=== PATIENT | female | born 1960 | race Caucasian/White ===

== ENCOUNTER → 2018-12-01 | Outpatient (REF) | payer BC ==
[~2018-12-01] MED LIST: ADV250INH INH; ALPR0.5T3 PO; ALPR1TAB3 PO; AMBI10TA PO; BUPR300T34 PO; ESTR1TAB PO; LEVAINH INH; OXAZ30CA2 PO; PHEN37.5 PO; VITA500046 PO; VITMTA PO; WELL100T PO
[2018-12-01 19:06] LABS: BACTERIA, URINE AUTO 2+ (NEGATIVE); RBC, URINE AUTO 0 /HPF (0-3); SQUAMOUS EPITHELIAL CELL UR AU 1 /HPF (0-6); WBC, URINE AUTO 2 /HPF (0-3)
== END ==
LOC: M SMT 17:16
PROVIDERS: ATTEND Specialist
DX: N39.43 Post-void dribbling (principal)

== ENCOUNTER 2019-02-27 09:00 | Day surgery (SDC) | payer BC ==
[~2019-02-27] VITALS: Ht 154.9 cm; Wt 62.6 kg
[~2019-02-27 09:00] MED LIST changes: +ATOR40TA75 PO; +BREO1INH INH; +CBD OIL; +CLINDAMYCIN 900 MG in APPROPRIATE DILUENT 1 EA IV ONE; +HYDR-2808 PO; +LAMI1TAB8 PO; +LEVO75TA4 PO; +LIDOCAINE 1% MDV 20ML VIAL SQ PRN; +LR 1,000 ML IV ONE; +MIDAZOLAM INJ 2 MG/2 ML VIAL (J2250) IV SCH; +OMEG1CAP16 PO; +PERC5TAB12 PO; +QUET1TAB8 PO; +VITA100T59 PO; +VITA200021 PO; +fentaNYL 100 MCG/2 ML INJECTION (J3010) IV SCH
[2019-02-27] MEDS ORDERED: dexameTHASONE 10 MG/1 ML VIAL PRES.FREE (J1100) ONE (09:01)
[2019-02-27] MEDS ORDERED: LIDOCAINE 1% MDV 20ML VIAL ONE (09:01)
[2019-02-27 09:35] LABS: HEMOGLOBIN 14.3 g/dl (12.0-15.5); MEAN CORPUSCULAR HEMOGLOBIN 30.8 pg (27.0-33.0); MEAN CORPUSCULAR HGB CONC 33.3 g/dl (32.0-36.5); MEAN CORPUSCULAR VOLUME 92.5 fl (80.0-96.0); PLATELET COUNT, AUTOMATED 339 10^3/uL (150-450); RED BLOOD COUNT 4.65 10^6/uL (4.00-5.40); WHITE BLOOD COUNT 8.1 10^3/uL (4.0-10.0)
[2019-02-27] MEDS ORDERED: CALC-190 PO (10:08)
--- NOTE | 2019-02-27 10:09 | ECGEPIP ---
[facility] Test Date: 2019-02-27 Pat Name: ANGELICA ROBLES Department: Room: - Gender: Female Huc: : 1960 Requested By: LYN Florian Order Number: [id number] Reading MD: Mira [address] Measurements Intervals [place] Rate: 62 P: 69 NM: 162 QRS: 61 QRSD: 89 T: 96 QT: 413 QTc: 422 Interpretive Statements SINUS RHYTHM NONSPECIFIC ST T-WAVE ABNORMALITY NO PRIOR Electronically Signed on 02-27-2019 10:09:[address]
[2019-02-27 10:11] LABS: ALBUMIN 3.5 GM/DL (3.2-5.2); BILIRUBIN,TOTAL 0.5 MG/DL (0.2-1.0); CREATININE FOR GFR 1.14 MG/DL (0.55-1.30); GLOMERULAR FILTRATION RATE 51.9 (>51); POTASSIUM SERUM 3.8 MEQ/L (3.5-5.1); TOTAL PROTEIN 7.2 GM/DL (6.4-8.2)
[2019-02-27] MEDS ORDERED: LIDOCAINE 2% INJ 100 MG/5 ML SDV (FOR ANES.) As Ordered ONE (10:14)
[2019-02-27] MEDS ORDERED: ONDANSETRON 4MG/2ML VIAL (J2405) As Ordered ONE (10:14)
[2019-02-27] MEDS ORDERED: MIDAZOLAM INJ 2 MG/2 ML VIAL (J2250) As Ordered ONE ×3 (10:14→12:18)
[2019-02-27] MEDS ORDERED: PROPOFOL 200 MG/20 ML VIAL As Ordered ONE (10:14)
[2019-02-27] MEDS ORDERED: dexameTHASONE 4 MG/ML 1ML VIAL (J1100) As Ordered ONE (10:14)
[2019-02-27] MEDS ORDERED: fentaNYL 100 MCG/2 ML INJECTION (J3010) As Ordered ONE ×2 (10:14→11:53)
[2019-02-27] MEDS ORDERED: IPRATROPIUM 0.5MG/ALBUTEROL 2.5MG INH SOL UD 3ML (DUONEB)(J7620) As Ordered ONE (10:22)
[2019-02-27] MEDS ORDERED: IPRATROPIUM 0.5MG/ALBUTEROL 2.5MG INH SOL UD 3ML (DUONEB)(J7620) INH ONE (10:30)
[2019-02-27] MEDS ORDERED: KETAMINE HCL 200 MG/20 ML VIAL As Ordered ONE (11:32)
[2019-02-27] MEDS ORDERED: BUPIVACAINE HCL 0.25% 30 ML VIAL As Ordered ONE (11:52)
[2019-02-27] MEDS ORDERED: BUPIVACAINE HCL 0.25% 10 ML VIAL As Ordered ONE (11:52)
[2019-02-27] MEDS ORDERED: HYDROmorphone HCL 2 MG/ML 1ML VIAL (J1170) As Ordered ONE (13:53)
[2019-02-27] MEDS ORDERED: ROCURONIUM BROMIDE 50 MG/5 ML VIAL As Ordered ONE (13:55)
[2019-02-27] MEDS ORDERED: LABETALOL HCL 100 MG/20 ML VIAL As Ordered ONE (13:58)
[2019-02-27] MEDS ORDERED: SUGAMMADEX SODIUM 500 MG/5 ML VIAL (BRIDION) As Ordered ONE (14:08)
[2019-02-27] MEDS ORDERED: KETOROLAC 60 MG/2 ML VIAL (J1885) As Ordered ONE (14:09)
[2019-02-27] MEDS ORDERED: PHENYLephrine HCL 500 MCG/5 ML (100MCG/ML) SYRINGE (J2370) As Ordered ONE (14:12)
[2019-02-27] MEDS ORDERED: ePHEDrine SULFATE 25 MG/5 ML(5MG/ML) SYRINGE As Ordered ONE (14:12)
[2019-02-27] MEDS ORDERED: ONDANSETRON 4MG/2ML VIAL (J2405) IV PRN (16:45)
[2019-02-27] MEDS ORDERED: fentaNYL 100 MCG/2 ML INJECTION (J3010) IV PRN (16:45)
[2019-02-27] MEDS ORDERED: LR 1,000 ML IV SCH (16:45)
[2019-02-27] MEDS ORDERED: ACETAMINOPHEN 500 MG TAB PO PRN (16:45)
[2019-02-27] MEDS: HYDROMORPHONE HCL 0.5 MG/ 0.5 ML SYRINGE (J1170 PER 1) IV PRN ×2 (17:02→17:10)
[2019-02-27] MEDS: oxyCODONE 5MG TAB PO PRN ×2 (17:02→17:47)
[2019-02-27 19:05] VITALS: BP 115/67
--- NOTE | 2019-02-27 22:21 | RO ---
DATE OF PROCEDURE: 02/27/2019 PREPROCEDURE DIAGNOSIS: Left proximal humerus fracture. POSTPROCEDURE DIAGNOSIS: Left proximal humerus fracture. PROCEDURE:Left Reverse shoulder arthroplasty ORIF Left Greater and Lesser Tuberosities Left Rotator cuff repair left bicep tenodesis SURGEON: Preet Treadwell MD GAS STATION CASHIER:none ANESTHESIA: General INDICATIONS: This is a pleasant 58-year-old female who had a fall and suffered a comminuted four-part proximal humerus fracture. We discussed in the preoperative planning with the patient the possibility of either fixing proximal humerus versus reverse shoulder arthroplasty. I discussed with the patient that this would be an intraoperative decision based on the quality of bone and tissue. The patient expressed understanding and agreement with this plan. Risks and benefits including but not limited to malunion, nonunion, infection, dislocation, and damage to surrounding structures. OPERATIVE FINDINGS: After doing the approach, we discovered that there was an anatomical neck fracture that did not leave much subchondral bone beneath the articular surface and due to this, decision was made to do reverse shoulder arthroplasty as opposed to fixing it, as we did not feel like we would get adequate fixation. DESCRIPTION OF PROCEDURE: The patient was brought back into the operating room, placed in the beach chair. The patient was intubated at which point the patient's left shoulder was prepped and draped in the usual fashion. Time-out was had confirming site, surgery, and patient at which point the deltopectoral (deltopec) approach was made. We sharply went through the skin, divided subcu tissue, identified the cephalic vein at the deltopectoral interval, moved the cephalic vein laterally at which point we identified the conjoined tendon and incised lateral to this and placed retractors in place. We freed up subdeltoid adhesions. At this point, we were able to identify the fracture. Fracture plane was found through the bicipital groove. We used x-ray to try to use indirect modes of reduction at which point we were happy at first with our reduction and then tried to use some K-wires to hold it in place. However, we were unable to hold it in place. Then, we further explored the fracture and finding that there was very little subchondral bone intact on the subarticular surface, about 5 mm, and did not believe this would hold reduction, so we changed gears and decided to proceed with reverse shoulder arthroplasty. Given the patient's age and medical comorbidities, including chronic obstructive pulmonary disease (COPD) and active smoker, I did not feel that the tuberosity healing would be at the highest chance. So, we then turned our attention to the glenoid. The bicep was tenodesed just inferior to the groove. We then stripped the biceps tendon proximally along with the labrum, marked the center just inferior third of the glenoid at which point I placed the pin, drilled our center peg. We then reamed away the cartilage and subchondral bone, impacted the base plate at which point we then drilled the four screws, superior and inferior were locking screws, anterior and posterior were cortical. These were then locked in place, and we decided to proceed with a 38 glenosphere. We turned our direction then to the humerus, which was then prepped starting at the 6 mm and proceeded upwards to 10 mm, and then we broached using a 30-degree retroversion in the arm; at which point, we were happy with the cortical chatter and the tight fit. We trialed both a 3 and a 6 poly at which point we decided we were happy with this selection, so then we used a 10 stem, impacted it fully down. When we retrialed the polys, we must have sunk the stem a little bit further because then we chose a 9 poly for adequate fit. No spontaneous dislocation and full range of motion with a 1-2 mm gap on shuck. At which point, we impacted the final poly. We then used a #2 FiberWire to repair the tuberosities using bone tunnels along with traction down to the tendon insertion, and we then repaired some small rotator cuff along the rotator interval with a #2 FiberWire as well, along with a combination of #5 Ethibond. At this point, we were happy with the reduction of the tuberosities and the rotator cuff repair. We then closed the deltopectoral interval with #0 Prolene, subcu tissue with #2-0 Vicryl and stapled the skin shut. We placed a dressing over top, and the patient will be in a sling. COMPLICATIONS: None. SPECIMENS: None. No drains. There were 2 grams of Kefzol antibiotics preoperatively POSTOPERATIVE PLAN: The patient will be in a sling for 2 weeks. We will see her in the office, check on the incision at which point we will start pendulum swings only. We will wait until 6 weeks for active range of motion and for physical therapy to officially start. MTDD
--- NOTE | 2019-02-28 06:43 | REP ---
LEFT SHOULDER, TWO VIEWS: Two views of the left shoulder performed. There is a prosthetic glenoid aligned with a prosthesis in the proximal humerus. There is curvilinear calcification along the lateral aspect of the proximal humerus. There is mild narrowing and spurring of the acromioclavicular joint. Electronically Signed by Jose Higuera MD 02/28/2019 11:51 P
== END 2019-02-27 19:10 | disposition home or self-care (01) ==
LOC: M SDC 09:00
PROVIDERS: ATTEND Orthopaedic Surgery Hand Surgery
DX: S42.202A Unspecified fracture of upper end of left humerus, initial encounter for closed fracture (principal); W19.XXXA Unspecified fall, initial encounter; Y92.89 Other specified places as the place of occurrence of the external cause; Y93.9 Activity, unspecified; Y99.9 Unspecified external cause status; J44.9 Chronic obstructive pulmonary disease, unspecified; E03.9 Hypothyroidism, unspecified; E78.5 Hyperlipidemia, unspecified; F17.210 Nicotine dependence, cigarettes, uncomplicated; Z88.0 Allergy status to penicillin; Z88.2 Allergy status to sulfonamides; Z88.5 Allergy status to narcotic agent; F41.9 Anxiety disorder, unspecified; F32.9 Major depressive disorder, single episode, unspecified; Z79.899 Other long term (current) drug therapy
CPT/HCPCS: 23420; 23430; 23616; 36415; 64418; 73020; 76000; 80053; 85027; 88304; 88311; 93005; C1713; C1776; J1100; J1170; J1885; J2250; J2370; J2405; J3010

== ENCOUNTER → 2019-04-03 | Outpatient (CLI) | payer BC ==
[~2019-04-03] MED LIST changes: +CALC-190 PO; -CLINDAMYCIN 900 MG in APPROPRIATE DILUENT 1 EA IV ONE; -LIDOCAINE 1% MDV 20ML VIAL SQ PRN; -LR 1,000 ML IV ONE; -MIDAZOLAM INJ 2 MG/2 ML VIAL (J2250) IV SCH; -fentaNYL 100 MCG/2 ML INJECTION (J3010) IV SCH
[2019-04-03 14:12] LABS: BASO # 0.1 10^3/uL (0.0-0.2); BASO % 0.5 % (0.0-1.0); EOS # 0.1 10^3/uL (0.0-0.5); EOS % 0.9 % (0.0-3.0); HEMATOCRIT 36.7 % (36.0-47.0); HEMOGLOBIN 11.7 g/dl (12.0-15.5); LYMPH # 1.5 10^3/uL (1.5-5.0); LYMPH % 16.5 % (24.0-44.0); MEAN CORPUSCULAR HEMOGLOBIN 29.1 pg (27.0-33.0); MEAN CORPUSCULAR HGB CONC 31.9 g/dl (32.0-36.5); MEAN CORPUSCULAR VOLUME 91.3 fl (80.0-96.0); MONO # 0.6 10^3/uL (0.0-0.8); MONO % 6.2 % (0.0-5.0); NEUTROPHILS # 6.9 10^3/uL (1.5-8.5); NEUTROPHILS % 75.5 % (36.0-66.0); PLATELET COUNT, AUTOMATED 402 10^3/uL (150-450); RED BLOOD COUNT 4.02 10^6/uL (4.00-5.40); WHITE BLOOD COUNT 9.1 10^3/uL (4.0-10.0)
[2019-04-03 14:37] LABS: BLOOD UREA NITROGEN 17 MG/DL (7-18); C REACTIVE PROTEIN QUANTITATIV 2.86 MG/DL (0.00-0.30); CREATININE FOR GFR 0.96 MG/DL (0.55-1.30); GLOMERULAR FILTRATION RATE > 60.0 (>51)
[2019-04-03 15:01] LABS: ERYTHROCYTE SEDIMENTATION RATE 52 mm/hr (0-30)
== END ==
LOC: M WUC 13:32
PROVIDERS: ATTEND Orthopaedic Surgery Hand Surgery
DX: Z47.1 Aftercare following joint replacement surgery (principal)

== ENCOUNTER 2019-04-25 08:02 | Inpatient (IN) | payer MEDICARE, BC ==
[~2019-04-25] VITALS: Ht 154.9 cm; Wt 64.3 kg
[~2019-04-25 08:02] MED LIST changes: +BACT800T5 PO; +KEFL250C11 PO; +LR 1,000 ML IV ONE; +MIDAZOLAM INJ 2 MG/2 ML VIAL (J2250) As Ordered ONE; +VITA50005 PO; +fentaNYL 100 MCG/2 ML INJECTION (J3010) As Ordered ONE
[2019-04-25] MEDS ORDERED: LIDOCAINE 2% INJ 100 MG/5 ML SDV (FOR ANES.) As Ordered ONE (08:52)
[2019-04-25] MEDS ORDERED: ROCURONIUM BROMIDE 50 MG/5 ML VIAL As Ordered ONE ×2 (08:52→12:20)
[2019-04-25] MEDS ORDERED: PROPOFOL 200 MG/20 ML VIAL As Ordered ONE (08:52)
[2019-04-25] MEDS ORDERED: MIDAZOLAM INJ 2 MG/2 ML VIAL (J2250) As Ordered ONE (08:53)
[2019-04-25] MEDS ORDERED: dexameTHASONE 4 MG/ML 1ML VIAL (J1100) As Ordered ONE (08:53)
[2019-04-25] MEDS ORDERED: fentaNYL 100 MCG/2 ML INJECTION (J3010) As Ordered ONE (08:53)
[2019-04-25] MEDS ORDERED: ONDANSETRON 4MG/2ML VIAL (J2405) As Ordered ONE (08:53)
[2019-04-25] MEDS ORDERED: ALBUTEROL 6.7GM INHALER **FOR ANES. CART/OMNICELL ONLY As Ordered ONE (09:09)
[2019-04-25] MEDS ORDERED: SUGAMMADEX SODIUM 500 MG/5 ML VIAL (BRIDION) As Ordered ONE (10:00)
[2019-04-25] MEDS ORDERED: EPINEPHrine INJ 1 MG/ML 1ML AMP As Ordered ONE (10:53)
[2019-04-25] MEDS ORDERED: CLINDAMYCIN INJ 900MG/6ML VIAL As Ordered ONE (10:54)
[2019-04-25] MEDS ORDERED: ceFAZolin 1GM INJ (J0690 PER 500MG) As Ordered ONE ×2 (11:27→12:46)
[2019-04-25] MEDS ORDERED: HYDROmorphone HCL 2 MG/ML 1ML VIAL (J1170) As Ordered ONE (12:01)
[2019-04-25] MEDS ORDERED: PHENYLephrine HCL 500 MCG/5 ML (100MCG/ML) SYRINGE (J2370) As Ordered ONE ×2 (12:05→12:54)
[2019-04-25] MEDS ORDERED: ACETAMINOPHEN 1000MG 100ML IV BTL (OFIRMEV) (J0131 PER 10MG) As Ordered ONE (12:44)
[2019-04-25] MEDS ORDERED: KETOROLAC 60 MG/2 ML VIAL (J1885) As Ordered ONE (12:44)
[2019-04-25] MEDS ORDERED: ONDANSETRON 4MG/2ML VIAL (J2405) IV PRN ×2 (14:00→15:00)
[2019-04-25] MEDS ORDERED: LR 1,000 ML IV SCH (14:00)
[2019-04-25] MEDS: fentaNYL 100 MCG/2 ML INJECTION (J3010) IV PRN ×4 (14:20→14:35)
[2019-04-25] MEDS: MORPHINE 10 MG/ML 1ML VIAL (J2270) IV PRN ×6 (14:50→15:25)
[2019-04-25] MEDS ORDERED: FLEET ENEMA PR PRN (15:00)
[2019-04-25] MEDS ORDERED: oxyCODONE 5MG TAB PO PRN (15:00)
--- NOTE | 2019-04-25 15:01 | RO ---
DATE OF PROCEDURE: 04/25/2019 PREOPERATIVE DIAGNOSIS: Left infected reverse shoulder arthroplasty. POSTOPERATIVE DIAGNOSIS: Left infected reverse shoulder arthroplasty. PROCEDURE: SURGEON: Preet Treadwell MD HORSERADISH MAKER: JONATHAN Monteiro who was essential during oconnell portions of the procedure with retraction. INDICATION: This is a 58-year-old female that suffered a very complex proximal humerus fracture approximately seven weeks ago. A decision was made due to the displacement and lack of bony stock to do a reverse shoulder arthroplasty. She did well for initially about 4-5 weeks then she started having one episode of fever and increasing pain. Eventually she developed a boil that developed into a draining sinus. Unfortunately, this means we had to return to the OR for irrigation, debridement and explant. The patient understood the risks and benefits that were discussed including but not limited to infection, need for further surgery and damage to surrounding structures. COMPLICATIONS: None. BLOOD LOSS: 250 mL. ANESTHESIA: General. SPECIMENS: We sent tissue for permanent pathology along with three or four cultures deep which will hopefully grow some bacteria that will allow us to curtail our antibiotics. OPERATIVE DESCRIPTION: The patient was brought back to the operating room on her stretcher, was placed onto the operative table, underwent general anesthesia at which point she was placed into the beach chair position. We prepped and draped her left arm in the usual fashion at which point we had time out confirming site, side and surgery. Once all in agreement, we made a longitudinal incision through the previous scar and we also excised lateral to that a 1.5 x 3 cm oval of tissue that was the draining sinus. We also excised a draining sinus at the inferior portion of the incision that was 5 x 2 cm. At this point, we found the deltopectoral interval by identifying our previously nonabsorbable suture. We then identified the conjoin tendon and inserted our folder retractor after we free up the deltoid from any adhesions. We then localized out 5.0 wire sutures and removed them that were previously used to fix the tuberosities. We debrided the tuberosities as well as they looked like necrotic bone. We then dislocated the shoulder and used the Cirqleuy extractor to remove the poly. We used flexible osteotomes to loosen the prosthesis proximally around the metaphysis and used the extraction device to remove the humeral stem, at which point our attention was turned to the Glenosphere where we unlocked the engaged taper screw, then the Glenosphere itself was loosened and able to be lifted off using the fork elevator. We then removed the two compressive and two locking screws and used the screwdriver to remove the baseplate. We were able to find gross purulence once we incised this sinus tract along with deep into the joint between the prosthetic and bone interfaces. We then irrigated the wound thoroughly. We used a knife, Bovie and curettes to debride the skin, subcutaneous tissue, muscle and bone sharply. Once we believed we had adequate debridement and after irrigating with 7 liters of saline, we then started mixing the antibiotics cement and using the [employer] interspace shoulder articulating spacer, then we used antibiotic cement to cement it around the metaphysis and into place. This will help maintain the joint space for a staged procedure wherein 2-3 months we will come back and return after the infection is cleared to place a new reverse shoulder arthroplasty. Once we were happy with the spacer being cemented in well and secure, we then irrigated the wound one more time and closed the deltopectoral fascia with #0 Prolene and we closed the subcutaneous tissue by bulky incision and the lateral sinus tact with #2-0 PDS and the skin with #2-0 nylon. We then placed an Incisional VAC over the sinus tract along with the incision set to 75 mmHg at which point the patient was extubated and taken stably to PACU. POSTOPERATIVE PLAN: The patient will be admitted to the hospital where we will await the final cultures. She is currently on vancomycin and Zosyn and we will hopefully be able to curtail these until the cultures are final. We will also have them held for 21 days to locate for P. Acnes. The patient will not require any shoulder PT, only work on pain control and ambulation as needed. She will get a regular diet and will hopefully discharge her within the week. MINGO
--- NOTE | 2019-04-25 15:04 | CR.PDOC ---
General Date of Consultation: Apr 25, 2019 Referring Provider: A Consultation Reason of consultation medical management Chief complaints Complication of the operated left shoulder after a fall HISTORY OF PRESENT ILLNESS: Ms. Garrido is a 55-year-old female patient who approximately 10 years ago had a hysterectomy for uterine cancer. She then received chemotherapy as well as radiation and completed that and to her knowledge is now cancer free. Now comes to the hospital because 7 weeks back. She has had a fall from the horse where she hurt her left shoulder and because of a comminuted fracture and a complete rotator cuff destruction. She was seen and operated for total shoulder repl acement. The patient stated after the surgery. She has doing good, but lately for the last 1 week developed some painful swelling over the 80 of the incision and it looked like a boil. The patient had another fall yesterday and after that she came to the ER and orthopedics evaluated her and as per her, thought that she was having some infection in the prosthetic shoulder and for that reason, they did a total shoulder region today. The patient's cultures have been sent for fungus anaerobes as well as regular cultures. The patient is also chronic active smoker and smokes half pack per day for the last 30 years. She takes inhalers at home and she states that she is compliant with those. She has also had two C-sections in the past as far as abdominal operations. Currently, she is postop in the recovery and is on 2 L nasal cannula, alert, oriented times place and person with old VAC in place which is draining clear bloody secretions. PAST MEDICAL HISTORY: Uterine cancer, anxiety, and reactive airway disease. PAST SURGICAL HISTORY: section times two, hysterectomy 10 years ago with radiation and chemotherapy. Total shoulder repair. 7 weeks back FAMILY HISTORY: Noncontributory. SOCIAL HISTORY: She smokes one pack per day of cigarettes currently and uses occasional alcohol. No illicit drug use. FAMILY HISTORY: Noncontributory. HOME MEDICATIONS: Updated ALLERGIES: PENICILLIN as well as SULFA. REVIEW OF SYSTEMS: Pertinent positive findings as per HPI PHYSICAL EXAMINATION: GENERAL: She is awake, alert, and oriented and she is currently in no acute distress. Blood pressure 133/91, heart rate 80, respirations are 14. She is 98% on 2l. Temperature 97.8, weight 60.7 kg, height is 61 inches with a body mass index (BMI) of 25.3. HEENT: Normocephalic, atraumatic. NECK: No jugular venous distention. No cervical lymphadenopathy. Trachea is midline. Neck is supple. CHEST: Clear to auscultation bilaterally. No wheezes, rales, or rhonchi can be appreciated. CARDIOVASCULAR: S1, S2, regular rate and rhythm. No murmurs, clicks, or rubs can be appreciated. ABDOMEN: Soft. It is actually relatively flat. There is no guarding, no peritoneal signs. Minimal tenderness. Positive bowel sounds. EXTREMITIES: There is a wound VAC in place over the left shoulder which is draining bloody secretions LABORATORY DATA: No blood work ASSESSMENT AND PLAN: 1. Left shoulder revision because of possible infection . Management as per orthopedics. Pain control as per orthopedics. Activity as per orthopedics. 2. Infected wound. All the cultures have been sent including fungal and anaerobic cultures. We will keep the patient on vancomycin, cefepime and Flagyl for now. Once the cultures are positive and after talking to orthopedics will de-escalate antibiotics. Cultures will be drawn as well. Will get CBC, ESR, CRP 3. COPD. We will keep the patient on Wednesday on nebs every 6 when necessary along with that. We'll resume her home meds. The patient does not look like in any exacerbation. Maintain saturation above 92 by supplemental oxygen. We'll start her on 14 g of nicotine patch DVT prophylaxis with SCDs In control, activity as per orthopedics Disposition as per primary Vital Signs/I&O Vital Signs Date Time Temp Pulse Resp B/P (MAP) Pulse Ox O2 Delivery O2 Flow Rate FiO2 04/25/19 14:45 74 16 113/57 (75) 96 Nasal Cannula 2 04/25/19 14:30 97.2 Laboratory Data Microbiology Microbiology 04/25/19 Fungal Smear, Received Pending 04/25/19 Fungal Culture, Received Pending 04/25/19 Fungal Smear, Received Pending 04/25/19 Fungal Culture, Received Pending 04/25/19 Fungal Smear, Received Pending 04/25/19 Fungal Culture, Received Pending 04/25/19 Anaerobic Culture, Received Pending 04/25/19 Gram Stain, Received Pending 04/25/19 Wound Culture, Received Pending 04/25/19 Anaerobic Culture, Received Pending 04/25/19 Gram Stain, Received Pending 04/25/19 Wound Culture, Received Pending 04/25/19 Anaerobic Culture, Received Pending 04/25/19 Gram Stain, Received Pending 04/25/19 Wound Culture, Received Pending Allergies Coded Allergies: Penicillins (Verified Allergy, Severe, DIFFICULTY BREATHING, HIVES, 04/20/19) tramadol (Verified Adverse Reaction, Intermediate, HALLUCINATIONS,, 04/20/19) Home Medications Scheduled Alprazolam (Alprazolam) 1 Mg Tab, 1 MG PO BID, (Reported) Atorvastatin Calcium (Atorvastatin Calcium) 40 Mg Tablet, 40 MG PO DAILY, (Reported) Bupropion HCl (Bupropion Xl) 300 Mg Tab, 300 MG PO DAILY, (Reported) Calcium Carbonate/Vitamin D3 (Calcium 1,000 + D3 Caplet) 1 Each Tablet, 1 TAB PO DAILY for 30 Days, #30 (Reported) Ergocalciferol (Vitamin D2) (Vitamin D2) 50,000 Unit Capsule, 50,000 UNIT PO QWEEK, (Reported) Estradiol (Estradiol) 1 Mg Tab, 2 MG PO DAILY, (Reported) Fluticasone/Vilanterol (Breo Ellipta 100-25 Mcg INH) 1 Each Blst.w.dev, 1 PUFF INH DAILY, (Reported) Lamotrigine (Lamictal) 150 Mg Tablet, 150 MG PO DAILY, (Reported) Levothyroxine Sodium (Levothyroxine Sodium) 75 Mcg Tablet, 75 MCG PO DAILY, (Reported) Dunlap-3/Dha/Epa/Fish Oil (Dunlap 3 500 Softgel) 1 Each Capsule, 2 CAP PO DAILY, (Reported) Quetiapine Fumarate (Quetiapine Fumarate) 100 Mg Tablet, 100 MG PO DAILY, (Reported) Salmeterol/Fluticasone (Advair 250-50 Diskus) 14 Puff/Inhaler Aerp, 1 PUFF INH BID, (Reported) Scheduled PRN Hydrocodone/Acetaminophen (Hydrocodone-Acetamin 5-300 mg) 1 Each Tablet, 1 TAB P O PRN PRN for PAIN, (Reported) Levalbuterol Hydrochloride (Xopenex Hfa) 45 Mcg/Act Aer, 2 PUFF INH Q4H PRN for SOB/WHEEZING, (Reported) Miscellaneous Medications Cannabidiol (Cbd Oil) Btl, (Reported) Cephalexin (Keflex) 250 Mg Capsule, Unknown Dose PO, (Reported) Sulfamethoxazole/Trimethoprim (Bactrim Ds Tablet) 1 Each Tablet, 1 TAB PO, (Reported) WAQAS STOCKTON MD Apr 25, 2019 15:04
[2019-04-25] MEDS ORDERED: IPRATROPIUM 0.5MG/ALBUTEROL 2.5MG INH SOL UD 3ML (DUONEB)(J7620) NEB PRN (15:15)
[2019-04-25] MEDS ORDERED: metroNIDAZOLE 500 MG in IV 1 EA IV SCH (15:15)
[2019-04-25] MEDS ORDERED: MORPHINE 10 MG/ML 1ML VIAL (J2270) As Ordered ONE (15:19)
[2019-04-25] MEDS ORDERED: VANCOMYCIN HCL 1,000 MG, VIAL MATE ADAPTER 1 EACH in D5W 250 ML IV ONE (15:30)
[2019-04-25 15:57] LABS: BASO % 0.3 % (0.0-1.0); EOS % 0.2 % (0.0-3.0); HEMATOCRIT 29.3 % (36.0-47.0); HEMOGLOBIN 9.3 g/dl (12.0-15.5); LYMPH # 0.7 10^3/uL (1.5-5.0); LYMPH % 6.2 % (24.0-44.0); MEAN CORPUSCULAR HEMOGLOBIN 28.7 pg (27.0-33.0); MEAN CORPUSCULAR HGB CONC 31.7 g/dl (32.0-36.5); MEAN CORPUSCULAR VOLUME 90.4 fl (80.0-96.0); MONO # 0.1 10^3/uL (0.0-0.8); MONO % 0.7 % (0.0-5.0); NEUTROPHILS # 10.2 10^3/uL (1.5-8.5); NEUTROPHILS % 92.1 % (36.0-66.0); PLATELET COUNT, AUTOMATED 370 10^3/uL (150-450); RED BLOOD COUNT 3.24 10^6/uL (4.00-5.40); WHITE BLOOD COUNT 11.1 10^3/uL (4.0-10.0)
[2019-04-25] MEDS ORDERED: LEVALBUTEROL 1.25 MG/0.5 ML CONCENTRATE NEB INH PRN (16:00)
--- NOTE | 2019-04-25 16:00 | REP ---
HISTORY: Status post revision of total left shoulder arthroplasty. Single AP portable examination was obtained. The total arthroplasty seen on the prior exam has been removed both humeral and glenoid components. There is a revised humeral head and revised diaphyseal component. The glenohumeral relationship is seen in a limited fashion on this single portable view, however, it appears appropriate. IMPRESSION: Exam limitations and findings as described above. Electronically Signed by Lamont Castelan DO 04/25/2019 04:23 P
[2019-04-25 16:25] VITALS: BP 119/50
[2019-04-25 16:30] LABS: ALBUMIN 2.9 GM/DL (3.2-5.2); BILIRUBIN,TOTAL 0.2 MG/DL (0.2-1.0); CALCIUM LEVEL 8.3 MG/DL (8.5-10.1); CREATININE FOR GFR 1.17 MG/DL (0.55-1.30); GLOMERULAR FILTRATION RATE 50.4 (>51); THYROID STIMULATING HORMONE 2.26 uIU/ML (0.358-3.740)
[2019-04-25] MEDS: NS 1,000 ML IV SCH (16:39)
[2019-04-25 16:55] VITALS: BP 112/59
[2019-04-25] MEDS ORDERED: NICOTINE 14 MG/24 HR TRANSDERMAL TD SCH (17:00)
[2019-04-25] MEDS: MEROPENEM INJ 1 GM in IV 1 EA IV SCH (17:42)
[2019-04-25 17:55] VITALS: BP 113/63
--- NOTE | 2019-04-25 18:04 | CR ---
DATE OF CONSULTATION: 04/25/2019 REFERRING PHYSICIAN: Dr. Cortes REASON FOR CONSULTATION: Left shoulder prosthesis infection. ATTENDING PHYSICIAN: Dr. Inder Torres HISTORY OF PRESENT ILLNESS: Mrs. Moreau is a 58-year-old female who presented to [facility] 7 weeks back after falling off her horse. The patient stated that 7 weeks ago she fell from her horse, injuring her left shoulder and resulting in a comminuted fracture and a complete rotator cuff tear. At the time, she was seen by orthopedic surgery for a total shoulder replacement. After the surgery, the patient stated that she did fairly well, and over the next week after her surgery she had some painful swelling as well as what was believed to be a hematoma form over her left shoulder. The patient stated that she was given some Bactrim for this, however, was told that it was likely just a hematoma or a boil. At the time the patient denied any fevers or chills. Last week she had gone to [place] for a week on a trip. While in [place], she went to the hospital, as the swelling increased as well as some pain and drainage. She stated at the emergency room in [place] they had tried to culture the shoulder, however, were unable to. She stated that they continued her antibiotics and sent her back to [place]. When the patient presented in [place], she had contacted her orthopedic surgeon, who had scheduled her for a reverse total shoulder today. The patient was taken to the operating room today and had her prosthesis removed and replaced with cement as well as antibiotic-coated beads. Fungal smears as well as anaerobic cultures were obtained in the operating room (OR). The patient states that through the course she did not have any fevers or chills but did have some nausea on occasion. She currently denies any nausea or vomiting, abdominal pain, fevers, or chills. She states that her left shoulder is painful. She does admit to a history of smoking. She smokes approximately a half pack per day. She also has a history of chronic obstructive pulmonary disease (COPD) and uses several inhalers. PAST MEDICAL HISTORY: 1. Uterine cancer status post a hysterectomy. 2. Anxiety. 3. Chronic obstructive pulmonary disease. PAST SURGICAL HISTORY: 1. section times two. 2. Hysterectomy 10 years with radiation and chemotherapy. 3. Total shoulder repair. 4. Reverse shoulder repair of the left. FAMILY HISTORY: Noncontributory. SOCIAL HISTORY: Patient is a current smoker. Smokes approximately one to half pack per day. She occasionally uses alcohol. She denies any illicit or intravenous (IV) drug use. ALLERGIES: Patient has an allergy to PENICILLIN as well as SULFA DRUGS. REVIEW OF SYSTEMS: CONSTITUTIONAL: Patient denies any chills, fevers, night sweats. She denies any unintentional weight loss or weight gain. HEENT: Patient denies any headaches, change in her vision. She denies any sore throat. CARDIOVASCULAR: Patient denies any chest pain, palpitations, or feelings of heart racing. RESPIRATORY: Patient admits to occasional shortness of breath. She admits to occasional cough, though she denies any wheezing. GASTROINTESTINAL: Patient denies any abdominal pain, nausea, vomiting, diarrhea, or constipation. GENITOURINARY: Patient denies any dysuria, increased frequency, or increased urgency. SKIN: Patient denies any rashes or lesions. MUSCULOSKELETAL: Patient admits to left shoulder pain, previously with a hematoma formation. NEUROLOGIC: Patient denies any changes in gait or speech. PSYCHIATRIC: Patient admits to anxiety. ENDOCRINE: Patient admits to a history of diabetes. She denies any hot or cold intolerance. HEMATOLOGIC: Patient denies any history of deep vein thrombosis or pulmonary embolism. She denies any history of easy bruising or bleeding. PHYSICAL EXAMINATION: VITAL SIGNS: Temperature 97.9, pulse 68, respiratory rate 16, blood pressure 120/59, pulse oximetry 95% on 2 liters nasal cannula. GENERAL: Patient is awake, alert. She is oriented. She does not appear in any acute distress. She was seen and examined in the postanesthesia care unit (PACU). HEENT: Atraumatic, normocephalic. Eyes are nonicteric. Trachea is midline. Mucous membranes are pink and moist. NECK: There is no jugular venous distention. There is no palpable cervical, axillary, or supraclavicular lymphadenopathy. CARDIOVASCULAR: Normal S1, S2, regular rate and rhythm. No clicks, rubs, or murmurs. RESPIRATORY: There are clear vesicular breath sounds bilaterally with good respiratory effort, slightly prolonged expiratory phase. There are no wheezes, rhonchi, or rales. ABDOMEN: Soft, nondistended, nontender to palpation in all four quadrants. No rebound tenderness or guarding. There are normoactive bowel sounds throughout. EXTREMITIES: On the left shoulder there is a wound vacuum-assisted closure (VAC) in place. Bilateral lower extremities are void of edema. There are full and equal pulses in bilateral upper and lower extremities. LABORATORY DATA: Hematology: White blood cells 11.1, hemoglobin 9.3, hematocrit 29.3, platelet count 370. Chemistry: Sodium 137, potassium 5.0, chloride 107, CO2 of 23, BUN 21, creatinine 1.17, fasting glucose 162. Calcium 8.3. IMAGING: Shoulder x-ray shows a total arthroplasty seen from previous exam. They removed both humeral and glenoid components. Revised humeral head, and revised diaphyseal component. The glenohumeral relationship was seen in a limited fashion on the single portable view. Microbiology: Blood cultures, fungal smears, anaerobic cultures are currently pending. MEDICATIONS: - vancomycin 1 gram every 24 hours - meropenem 1 gram every 12 hours ASSESSMENT AND PLAN: Left shoulder prosthesis infection. Patient is currently status post left reverse shoulder replacement. She had developed a possible infection secondary to her surgery. She has been taken to the OR today with prosthesis removal and placement of cement, antibiotic therapy. Patient will receive at least 6 weeks of iv antibiotic therapy followed by removal of the cement and then replacement of her shoulder prosthesis. She will have a peripherally inserted central catheter (PICC) line placed. For the time being, we will continue patient on vancomycin and meropenem. Will de-escalate according to culture data when available. CBC CRP ESR weekly MTDD
[2019-04-25 18:55] VITALS: BP 121/63
[2019-04-25] MEDS: VANCOMYCIN HCL 1,000 MG, VIAL MATE ADAPTER 1 EACH in D5W 250 ML IV SCH (19:00)
[2019-04-25] MEDS: NICOTINE 21MG/24HR 1 EA TRANSDERMAL TD SCH (19:27)
[2019-04-25] MEDS ORDERED: VANCOMYCIN HCL 500 MG in D5W MINI-BAG PLUS 100 ML IV ONE (20:00)
[2019-04-25] MEDS: IPRATROPIUM 0.5MG/ALBUTEROL 2.5MG INH SOL UD 3ML (DUONEB)(J7620) NEB SCH (20:00)
[2019-04-25] MEDS: ALPRAZolam 0.5 MG TAB PO SCH (20:00)
[2019-04-25] MEDS: MORPHINE 4 MG/ML 1ML VIAL/SYRINGE (J2270) IV PRN ×2 (20:00→22:43)
[2019-04-25] MEDS: ADVAIR HFA 115/21MCG INHALER INH SCH (20:11)
--- NOTE | 2019-04-25 21:02 | PHACANCOPD ---
PHARMACY VANCOMYCIN DOSING Pt Demographics Demographics Patient Age:58 , Weight: , Gender: female Adjusted Body Weight Date: 04/25/19, Adjusted Body Weight: Kg Events Past 24 Hours Events Past 24 Hours: YES: Elevation in WBC; NO: Dialysis, Diuretic Therapy, Change in CrCl, Fever, Pending Diagnostics, Pending Procedures, Other Vancomycin Vancomycin indication: SSTI Vancomycin Target Ranges: 10-20 mcg/ml Vancomycin Load Y/N: Yes Load Dose Date Time Vancomycin Load Dose: 1.5GM Date: 04/25/19 Time: 1900 Vancomycin Dose Date: 04/25/19. Current Vancomycin Dose: [1GM Q24H] Intermittent Dosing?: No Labs Labs Vital Signs Label Value Date Time Patient Temperature 97.8 degrees F 04/25/19 1855 Temperature Source Oral 04/25/19 1855 Patient Temperature 98.5 degrees F 04/25/19 1755 Temperature Source Oral 04/25/19 1755 Patient Temperature 98.3 degrees F 04/25/19 1655 Temperature Source Oral 04/25/19 1655 Item Value Date Time White Blood Count 11.1 10^3/uL H 04/25/19 1540 Creatinine 1.17 MG/DL 04/25/19 1540 Micro Microbiology 04/25/19 Blood Culture, Received Pending 04/25/19 Fungal Smear, Received Pending 04/25/19 Fungal Culture, Received Pending 04/25/19 Fungal Smear, Received Pending 04/25/19 Fungal Culture, Received Pending 04/25/19 Fungal Smear, Received Pending 04/25/19 Fungal Culture, Received Pending 04/25/19 Anaerobic Culture, Received Pending 04/25/19 Gram Stain - Final, Resulted 04/25/19 Wound Culture, Resulted Pending 04/25/19 Anaerobic Culture, Received Pending 04/25/19 Gram Stain - Final, Resulted 04/25/19 Wound Culture, Resulted Pending 04/25/19 Anaerobic Culture, Received Pending 04/25/19 Gram Stain - Final, Resulted 04/25/19 Wound Culture, Resulted Pending Creatinine Clearance Date:04/25/19. Creatinine Clearance: [ 42.3 mL/min]. Assessment and Plan Maintaining Current Dose?: Yes Reason for dose change: No Dose Change Pharmacist Note Pharmacist Note Date: 04/25/19. Pharmacist note: Patient was initiated on postoperative vancomycin therapy for broad antimicrobial coverage, in addition to meropenem. A 1.5 gram loading dose was scheduled for 1900 on 04/25/19 and then a maintenance dose of 1GM q24h at 1800. A trough to measure steady state was scheduled for 1700 on 04/27/19, prior to the third dose @ 1800. We will continue to monitor and make adjustments as needed. [facility] Apr 25, 2019 21:02
[2019-04-25] MEDS: QUEtiapine FUMARATE 100 MG TAB PO SCH (21:25)
[2019-04-25 22:00] VITALS: BP 130/66
[2019-04-26] MEDS: IPRATROPIUM 0.5MG/ALBUTEROL 2.5MG INH SOL UD 3ML (DUONEB)(J7620) NEB SCH ×2 (01:56→07:37)
[2019-04-26 02:00] VITALS: BP 141/74
[2019-04-26] MEDS: MORPHINE 4 MG/ML 1ML VIAL/SYRINGE (J2270) IV PRN ×2 (02:43→05:20)
[2019-04-26] MEDS: MEROPENEM INJ 1 GM in IV 1 EA IV SCH ×2 (05:20→17:58)
[2019-04-26] MEDS: NS 1,000 ML IV SCH (05:21)
[2019-04-26] MEDS: LEVOTHYROXINE 75MCG TABLET (0.075MG) PO SCH (05:21)
[2019-04-26 06:00] VITALS: BP 102/50
[2019-04-26 06:27] LABS: HEMATOCRIT 24.5 % (36.0-47.0); HEMOGLOBIN 7.8 g/dl (12.0-15.5); MEAN CORPUSCULAR HEMOGLOBIN 29.1 pg (27.0-33.0); MEAN CORPUSCULAR HGB CONC 31.8 g/dl (32.0-36.5); MEAN CORPUSCULAR VOLUME 91.4 fl (80.0-96.0); PLATELET COUNT, AUTOMATED 291 10^3/uL (150-450); RED BLOOD COUNT 2.68 10^6/uL (4.00-5.40); WHITE BLOOD COUNT 7.7 10^3/uL (4.0-10.0)
[2019-04-26 06:38] LABS: INR 1.03; PROTHROMBIN TIME 13.3 SECONDS (11.8-14.0)
[2019-04-26 06:47] LABS: BLOOD UREA NITROGEN 15 MG/DL (7-18); CALCIUM LEVEL 8.1 MG/DL (8.5-10.1); CARBON DIOXIDE LEVEL 22 MEQ/L (21-32); CHLORIDE LEVEL 111 MEQ/L (98-107); CREATININE FOR GFR 0.94 MG/DL (0.55-1.30); GLOMERULAR FILTRATION RATE > 60.0 (>51); GLUCOSE, FASTING 101 MG/DL (70-100); POTASSIUM SERUM 4.7 MEQ/L (3.5-5.1); SODIUM LEVEL 138 MEQ/L (136-145)
[2019-04-26] MEDS: ADVAIR HFA 115/21MCG INHALER INH SCH ×2 (07:36→18:37)
[2019-04-26] MEDS: NICOTINE 21MG/24HR 1 EA TRANSDERMAL TD SCH (08:59)
[2019-04-26] MEDS: buPROPion **XL** TABLET 150MG (WELLBUTRIN XL) PO SCH (08:59)
[2019-04-26] MEDS: ALPRAZolam 0.5 MG TAB PO SCH ×2 (08:59→20:08)
[2019-04-26] MEDS: ATORVASTATIN 20 MG TAB PO SCH (09:00)
[2019-04-26] MEDS: MIRALAX *UNIT DOSE* 17GM PACKET PO SCH (09:00)
[2019-04-26] MEDS: oxyCODONE 5MG TAB PO PRN ×3 (09:00→17:59)
[2019-04-26] MEDS: MOM 30ML SUSPENSION UDC PO SCH (09:00)
[2019-04-26 09:18] LABS: VANCOMYCIN RANDOM 15.7 UG/ML
[2019-04-26 10:00] VITALS: BP 118/56
[2019-04-26] MEDS: ACETAMINOPHEN TAB 650MG DOSE (2X325MG) PO PRN ×2 (11:06→20:08)
--- NOTE | 2019-04-26 11:32 | IPNPDOC ---
Text Note Date of Service The patient was seen on 04/26/19. NOTE Patient was seen and examined this morning. Has been lying comfortably. States that pain is well controlled. PHYSICAL EXAMINATION: GENERAL: She is awake, alert, and oriented and she is currently in no acute distress. HEENT: Normocephalic, atraumatic. NECK: No jugular venous distention. No cervical lymphadenopathy. Trachea is midline. Neck is supple. CHEST: Clear to auscultation bilaterally. No wheezes, rales, or rhonchi can be appreciated. CARDIOVASCULAR: S1, S2, regular rate and rhythm. No murmurs, clicks, or rubs can be appreciated. ABDOMEN: Soft. It is actually relatively flat. There is no guarding, no peritoneal signs. Minimal tenderness. Positive bowel sounds. EXTREMITIES: There is a wound VAC in place over the left shoulder which is draining clear yellowish fluid ASSESSMENT AND PLAN: 1. Left shoulder revision because of possible infection . Management as per orthopedics. Pain control as per orthopedics. Activity as per orthopedics. 2. Infected wound. All the cultures have been sent including fungal and anaerobic cultures. We will keep the patient on vancomycin, meropenem for now. Once the cultures are positive and after talking to orthopedics will de-escalate antibiotics. ID is already on board. She possibly might require 6 weeks of IV antibiotics. Once the blood cultures are negative for 48 hours. The patient will probably require a PICC line 3. COPD. We will keep the patient on Wednesday on nebs every 6 when necessary along with that. We'll resume her home meds. The patient does not look like in any exacerbation. Maintain saturation above 92 by supplemental oxygen. We'll start her on 14 g of nicotine patch DVT prophylaxis with SCDs In control, activity as per orthopedics Disposition as per primary VS,Fishbone, I+O VS, Fishbone, I+O Laboratory Tests 04/25/19 15:40 04/26/19 05:56 Vital Signs Date Time Temp Pulse Resp B/P (MAP) Pulse Ox O2 Delivery O2 Flow Rate FiO2 04/26/19 10:00 98.7 78 18 118/56 (76) 96 Room Air 04/25/19 21:00 2.0 I&O- Last 24 Hours up to 6 AM 04/26/19 05:59 Intake Total 2830 ml Output Total 850 ml Balance 1980 ml KICHLOO,WAQAS A. MD Apr 26, 2019 11:32
[2019-04-26] MEDS ORDERED: ALBUTEROL 90 MCG/ACT 8GM HFA INHALER INH PRN (12:15)
[2019-04-26 14:00] VITALS: BP 119/58
[2019-04-26] MEDS: VANCOMYCIN HCL 1,000 MG, VIAL MATE ADAPTER 1 EACH in D5W 250 ML IV SCH (17:58)
[2019-04-26] MEDS: QUEtiapine FUMARATE 100 MG TAB PO SCH (20:08)
[2019-04-26 22:00] VITALS: BP 138/70
[2019-04-27] MEDS: ACETAMINOPHEN TAB 650MG DOSE (2X325MG) PO PRN ×3 (05:38→18:09)
[2019-04-27] MEDS: MEROPENEM INJ 1 GM in IV 1 EA IV SCH ×2 (05:39→17:20)
[2019-04-27] MEDS: LEVOTHYROXINE 75MCG TABLET (0.075MG) PO SCH (05:39)
[2019-04-27 05:56] LABS: HEMATOCRIT 26.2 % (36.0-47.0); MEAN CORPUSCULAR HEMOGLOBIN 28.5 pg (27.0-33.0); MEAN CORPUSCULAR HGB CONC 30.5 g/dl (32.0-36.5); MEAN CORPUSCULAR VOLUME 93.2 fl (80.0-96.0); PLATELET COUNT, AUTOMATED 278 10^3/uL (150-450); RED BLOOD COUNT 2.81 10^6/uL (4.00-5.40); WHITE BLOOD COUNT 5.6 10^3/uL (4.0-10.0)
[2019-04-27 06:00] VITALS: BP 118/54
[2019-04-27 06:15] LABS: BLOOD UREA NITROGEN 15 MG/DL (7-18); CALCIUM LEVEL 7.7 MG/DL (8.5-10.1); CARBON DIOXIDE LEVEL 27 MEQ/L (21-32); CHLORIDE LEVEL 108 MEQ/L (98-107); CREATININE FOR GFR 0.91 MG/DL (0.55-1.30); GLOMERULAR FILTRATION RATE > 60.0 (>51); GLUCOSE, FASTING 88 MG/DL (70-100); POTASSIUM SERUM 4.3 MEQ/L (3.5-5.1); SODIUM LEVEL 139 MEQ/L (136-145)
[2019-04-27] MEDS: ADVAIR HFA 115/21MCG INHALER INH SCH ×2 (08:15→17:32)
[2019-04-27] MEDS: ATORVASTATIN 20 MG TAB PO SCH (08:45)
[2019-04-27] MEDS: buPROPion **XL** TABLET 150MG (WELLBUTRIN XL) PO SCH (08:45)
[2019-04-27] MEDS: NICOTINE 21MG/24HR 1 EA TRANSDERMAL TD SCH (08:45)
[2019-04-27] MEDS: MOM 30ML SUSPENSION UDC PO SCH (08:45)
[2019-04-27] MEDS: MIRALAX *UNIT DOSE* 17GM PACKET PO SCH (08:46)
[2019-04-27] MEDS: ALPRAZolam 0.5 MG TAB PO SCH ×2 (09:57→20:45)
[2019-04-27] MEDS: oxyCODONE 5MG TAB PO PRN ×3 (10:46→20:46)
--- NOTE | 2019-04-27 11:40 | IPNPDOC ---
Text Note Date of Service The patient was seen on 04/27/19. NOTE Patient was seen and examined this morning. Has been lying comfortably. States that pain is well controlled. PHYSICAL EXAMINATION: GENERAL: She is awake, alert, and oriented and she is currently in no acute distress. HEENT: Normocephalic, atraumatic. NECK: No jugular venous distention. No cervical lymphadenopathy. Trachea is midline. Neck is supple. CHEST: Clear to auscultation bilaterally. No wheezes, rales, or rhonchi can be appreciated. CARDIOVASCULAR: S1, S2, regular rate and rhythm. No murmurs, clicks, or rubs can be appreciated. ABDOMEN: Soft. It is actually relatively flat. There is no guarding, no peritoneal signs. Minimal tenderness. Positive bowel sounds. EXTREMITIES: There is a wound VAC in place over the left shoulder which is draining clear yellowish fluid ASSESSMENT AND PLAN: 1. Left shoulder revision because of possible infection . Management as per orthopedics. Pain control as per orthopedics. Activity as per orthopedics. 2. Infected wound. All the cultures have been sent including fungal and anaerobic cultures. We will keep the patient on vancomycin, meropenem for now. Once the cultures are positive and after talking to orthopedics will de-escalate antibiotics. ID is already on board. She possibly might require 6 weeks of IV antibiotics. Once the blood cultures are negative for 48 hours. The patient will probably require a PICC line 3. COPD. We will keep the patient on Wednesday on nebs every 6 when necessary along with that. We'll resume her home meds. The patient does not look like in any exacerbation. Maintain saturation above 92 by supplemental oxygen. We'll start her on 14 g of nicotine patch DVT prophylaxis with SCDs In control, activity as per orthopedics Disposition as per primary VS,Fishbone, I+O VS, Fishbone, I+O Laboratory Tests 04/27/19 05:28 Vital Signs Date Time Temp Pulse Resp B/P (MAP) Pulse Ox O2 Delivery O2 Flow Rate FiO2 04/27/19 10:46 16 04/27/19 06:00 97.4 64 118/54 (75) 100 Room Air 04/26/19 21:00 2.0 I&O- Last 24 Hours up to 6 AM 04/27/19 06:00 Intake Total 1800 ml Balance 1800 ml WAQAS STOCKTON MD Apr 27, 2019 11:40
[2019-04-27 14:00] VITALS: BP 134/61
[2019-04-27] MEDS ORDERED: LIDOCAINE 1% MDV 20ML VIAL As Ordered ONE (14:54)
[2019-04-27] MEDS ORDERED: VANCOMYCIN HCL 1,000 MG, VIAL MATE ADAPTER 1 EACH in D5W 250 ML IV SCH (17:45)
[2019-04-27] MEDS: SODIUM CHLORIDE 0.9% INJ 10 ML SYR IV SCH (18:10)
--- NOTE | 2019-04-27 19:43 | PHACANCOPD ---
PHARMACY VANCOMYCIN DOSING Pt Demographics Demographics Patient Age:58 , Weight:64.319 , Gender: female Adjusted Body Weight Vancomycin Vancomycin indication: INFECTED LEFT SHOULDER s/p ORTHO SURHERY Vancomycin Target Ranges: 10-20 mcg/ml Vancomycin Load Y/N: No Vancomycin Dose Date: 04/27/19. Change Vancomycin Dose to : [1GM IV Q12H starting @20:00] Intermittent Dosing?: No Labs Labs Laboratory Tests Test 04/26/19 05:56 04/27/19 16:47 Random Vancomycin Level 15.7 UG/ML Vancomycin Level Trough 7.7 UG/ML (10.0-20.0) Laboratory Tests 04/25/19 15:40 04/26/19 05:56 04/27/19 05:28 Micro Microbiology: NOS Creatinine Clearance Date:04/27/19. Creatinine Clearance: [ >50 mL/min]. Assessment and Plan Maintaining Current Dose?: No Reason for dose change: Trough too low Pharmacist Note Pharmacist Note Date: 04/27/19. PharmD note: LOW VANCO TROUGH REALIZED, THEREFORE, WE SHALL INCREASE HER VANCO TO 1GM IV Q12H STARTING AT 20:00 THIS EVENING. WE WILL REPEAT ANOTHER VANCO TROUGH WHEN SHE IS [facility] Apr 27, 2019 19:43
[2019-04-27] MEDS: QUEtiapine FUMARATE 100 MG TAB PO SCH (20:45)
[2019-04-27] MEDS: VANCOMYCIN HCL 1,000 MG, VIAL MATE ADAPTER 1 EACH in D5W 250 ML IV SCH (20:45)
[2019-04-27 21:27] VITALS: BP 147/78
[2019-04-28] MEDS: oxyCODONE 5MG TAB PO PRN ×4 (03:49→20:13)
[2019-04-28 06:00] VITALS: BP 138/78
[2019-04-28] MEDS: MEROPENEM INJ 1 GM in IV 1 EA IV SCH (06:16)
[2019-04-28] MEDS: ACETAMINOPHEN TAB 650MG DOSE (2X325MG) PO PRN ×2 (06:17→17:38)
[2019-04-28] MEDS: SODIUM CHLORIDE 0.9% INJ 10 ML SYR IV SCH ×2 (06:17→17:38)
[2019-04-28] MEDS: LEVOTHYROXINE 75MCG TABLET (0.075MG) PO SCH (06:17)
[2019-04-28 06:36] LABS: HEMATOCRIT 25.2 % (36.0-47.0); MEAN CORPUSCULAR HEMOGLOBIN 29.2 pg (27.0-33.0); MEAN CORPUSCULAR HGB CONC 31.7 g/dl (32.0-36.5); PLATELET COUNT, AUTOMATED 328 10^3/uL (150-450); RED BLOOD COUNT 2.74 10^6/uL (4.00-5.40); WHITE BLOOD COUNT 4.7 10^3/uL (4.0-10.0)
[2019-04-28 06:58] LABS: BLOOD UREA NITROGEN 14 MG/DL (7-18); CALCIUM LEVEL 8.2 MG/DL (8.5-10.1); CARBON DIOXIDE LEVEL 28 MEQ/L (21-32); CHLORIDE LEVEL 108 MEQ/L (98-107); CREATININE FOR GFR 0.84 MG/DL (0.55-1.30); GLOMERULAR FILTRATION RATE > 60.0 (>51); GLUCOSE, FASTING 88 MG/DL (70-100); POTASSIUM SERUM 4.3 MEQ/L (3.5-5.1); SODIUM LEVEL 140 MEQ/L (136-145)
[2019-04-28 07:02] LABS: ERYTHROCYTE SEDIMENTATION RATE 67 mm/hr (0-30)
[2019-04-28] MEDS: ADVAIR HFA 115/21MCG INHALER INH SCH ×2 (07:55→20:52)
[2019-04-28] MEDS ORDERED: OXYC-517 PO (08:21)
[2019-04-28] MEDS: MIRALAX *UNIT DOSE* 17GM PACKET PO SCH (09:00)
[2019-04-28] MEDS: MOM 30ML SUSPENSION UDC PO SCH (09:03)
[2019-04-28] MEDS: NICOTINE 21MG/24HR 1 EA TRANSDERMAL TD SCH (09:04)
[2019-04-28] MEDS: ALPRAZolam 0.5 MG TAB PO SCH ×2 (09:04→20:05)
[2019-04-28] MEDS: buPROPion **XL** TABLET 150MG (WELLBUTRIN XL) PO SCH (09:05)
[2019-04-28] MEDS: VANCOMYCIN HCL 1,000 MG, VIAL MATE ADAPTER 1 EACH in D5W 250 ML IV SCH ×2 (09:06→20:05)
[2019-04-28] MEDS: ATORVASTATIN 20 MG TAB PO SCH (09:06)
--- NOTE | 2019-04-28 10:50 | IPNPDOC ---
Text Note Date of Service The patient was seen on 04/28/19. NOTE Patient was seen and examined this morning. Has been lying comfortably. States that pain is well controlled. PHYSICAL EXAMINATION: GENERAL: She is awake, alert, and oriented and she is currently in no acute distress. HEENT: Normocephalic, atraumatic. NECK: No jugular venous distention. No cervical lymphadenopathy. Trachea is midline. Neck is supple. CHEST: Clear to auscultation bilaterally. No wheezes, rales, or rhonchi can be appreciated. CARDIOVASCULAR: S1, S2, regular rate and rhythm. No murmurs, clicks, or rubs can be appreciated. ABDOMEN: Soft. It is actually relatively flat. There is no guarding, no peritoneal signs. Minimal tenderness. Positive bowel sounds. EXTREMITIES: There is a wound VAC in place over the left shoulder which is draining clear yellowish fluid ASSESSMENT AND PLAN: 1. Left shoulder revision because of possible infection . Management as per orthopedics. Pain control as per orthopedics. Activity as per orthopedics. 2. Infected wound. All the cultures have been sent including fungal and anaerobic cultures and have been negative so far. the patient on vancomycin, meropenem for now. de-escalate antibiotics as per ID for discharge. ID is already on board. She possibly might require 6 weeks of IV antibiotics. Patient already has a PICC line in place. Wound VAC is draining very distant possible discontinuation today 3. COPD. We will keep the patient on Wednesday on nebs every 6 when necessary along with that. We'll resume her home meds. The patient does not look like in any exacerbation. Maintain saturation above 92 by supplemental oxygen. DVT prophylaxis with SCDs In control, activity as per orthopedics Disposition as per primary VS,Aroldobone, I+O VS, Aroldobone, I+O Laboratory Tests 04/28/19 05:54 Vital Signs Date Time Temp Pulse Resp B/P (MAP) Pulse Ox O2 Delivery O2 Flow Rate FiO2 04/28/19 09:05 16 04/28/19 06:00 98.5 88 138/78 (98) 96 Room Air 04/26/19 21:00 2.0 I&O- Last 24 Hours up to 6 AM 04/28/19 06:00 Intake Total 2260 ml Output Total 700 ml Balance 1560 ml WAQAS STOCKTON MD Apr 28, 2019 10:50
[2019-04-28] MEDS: SODIUM CHLORIDE 0.9% INJ 10 ML SYR IV PRN ×2 (11:35→21:27)
[2019-04-28] MEDS ORDERED: cefTRIAXone SOD 2 GM VIAL (J0696) IM SCH (16:00)
--- NOTE | 2019-04-28 17:07 | IPN ---
DATE: 04/28/2019 Kassidy is doing well. She was excited to be discharged home today, but her discharge is being held to arrange for her home IV antibiotics. She had no fever or chills. No nausea, vomiting or diarrhea. No abdominal pain. We did get her records from [facility] in [place], and review of the record showed an ultrasound of the extremity showing a 2.3 x 3.3 complex hypoechoic collection just beneath the skin surface anteriorly consistent with a hematoma, a developing abscess could not be excluded. There was also reactive left axillary adenopathy. CRP was elevated at 76.1 with the normal being less than 0.5. White count was 7.2. ESR 49. Blood cultures were negative, two sets, on April 18, 2019 and microbiology of the left axilla was read as normal skin brenda present with rare colonies. When I called the hospital microbiology department, they were able to tell me that this was a staph coag negative and a Corynebacterium species, a few colonies of each. Intraoperative cultures at [facility] all have been negative times three. They are being held for 21 days, aerobic and anaerobic so far negative. LABORATORY DATA: White count 4.7, hemoglobin 8, hematocrit 25.2, platelets 328, ESR 67. Sodium 140, potassium 4.3, chloride 108, bicarbonate 28, BUN 14, creatinine 0.84, glucose 88, calcium 8.2, CRP 2.8. On physical exam, temperature is 98.5, pulse 88, respirations 20, blood pressure 138/78, oxygen saturation 96% on room air. Heart: Normal S1, S2. No murmurs appreciated. Lungs: A few expiratory rhonchi. No wheezes or rales. Abdomen: Soft, nontender. No hepatosplenomegaly. Extremities: No edema. Left shoulder with a sling in place, and she has an Optifoam dressing with minimal bloody discharge. 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 Intraoperative cultures are negative. Review of cultures from [facility] had some skin brenda with a few staph coag negative and Corynebacterium. I will treat the patient as if she has a staph coag negative prosthetic joint infection, which is the most common. Tobacco abuse. The patient was advised on smoking cessation as it increases risk of infection. PLAN: I have discussed the case with jonathan Blanco from patient and family services ([facility]), given her the prescriptions. Hopefully she can get prior authorization for daptomycin at a dose of 500 mg IV every 24 hours, which would be less complicated once a day dosing. If daptomycin is not authorized, then she could stay on vancomycin 1 gram every 12 hours. Patient to follow up in my office in 2-3 weeks. Daptomycin treatment 500 mg every 24 hours for a total of 6 weeks. End of therapy would be June 06, 2019 from surgical date. Labs to be monitored including CBC basic, CPK, CRP and ESR weekly.
[2019-04-28] MEDS: QUEtiapine FUMARATE 100 MG TAB PO SCH (20:05)
[2019-04-28 22:00] VITALS: BP 140/57
[2019-04-29] MEDS: LEVOTHYROXINE 75MCG TABLET (0.075MG) PO SCH (05:20)
[2019-04-29] MEDS: oxyCODONE 5MG TAB PO PRN ×4 (05:21→21:00)
[2019-04-29] MEDS: SODIUM CHLORIDE 0.9% INJ 10 ML SYR IV SCH ×2 (05:21→16:48)
[2019-04-29 06:00] VITALS: BP 131/57
[2019-04-29 06:53] LABS: HEMATOCRIT 24.7 % (36.0-47.0); HEMOGLOBIN 7.6 g/dl (12.0-15.5); MEAN CORPUSCULAR HGB CONC 30.8 g/dl (32.0-36.5); MEAN CORPUSCULAR VOLUME 91.1 fl (80.0-96.0); PLATELET COUNT, AUTOMATED 309 10^3/uL (150-450); RED BLOOD COUNT 2.71 10^6/uL (4.00-5.40); WHITE BLOOD COUNT 4.3 10^3/uL (4.0-10.0)
[2019-04-29 07:25] LABS: BLOOD UREA NITROGEN 14 MG/DL (7-18); CALCIUM LEVEL 8.2 MG/DL (8.5-10.1); CARBON DIOXIDE LEVEL 28 MEQ/L (21-32); CHLORIDE LEVEL 106 MEQ/L (98-107); CREATININE FOR GFR 0.88 MG/DL (0.55-1.30); GLOMERULAR FILTRATION RATE > 60.0 (>51); GLUCOSE, FASTING 94 MG/DL (70-100); POTASSIUM SERUM 4.1 MEQ/L (3.5-5.1); SODIUM LEVEL 138 MEQ/L (136-145)
[2019-04-29] MEDS: ATORVASTATIN 20 MG TAB PO SCH (07:57)
[2019-04-29] MEDS: ALPRAZolam 0.5 MG TAB PO SCH ×2 (07:57→21:00)
[2019-04-29] MEDS: NICOTINE 21MG/24HR 1 EA TRANSDERMAL TD SCH (07:58)
[2019-04-29] MEDS: buPROPion **XL** TABLET 150MG (WELLBUTRIN XL) PO SCH (07:58)
[2019-04-29] MEDS: MIRALAX *UNIT DOSE* 17GM PACKET PO SCH (08:00)
[2019-04-29] MEDS: MOM 30ML SUSPENSION UDC PO SCH (08:00)
[2019-04-29] MEDS: ADVAIR HFA 115/21MCG INHALER INH SCH ×2 (08:02→19:12)
[2019-04-29] MEDS: VANCOMYCIN HCL 1,000 MG, VIAL MATE ADAPTER 1 EACH in D5W 250 ML IV SCH ×2 (09:06→21:01)
--- NOTE | 2019-04-29 10:56 | IPNPDOC ---
Text Note Date of Service The patient was seen on 04/29/19. NOTE Patient was seen and examined this morning. Has been lying comfortably. States that pain is well controlled. PHYSICAL EXAMINATION: GENERAL: She is awake, alert, and oriented and she is currently in no acute distress. HEENT: Normocephalic, atraumatic. NECK: No jugular venous distention. No cervical lymphadenopathy. Trachea is midline. Neck is supple. CHEST: Clear to auscultation bilaterally. No wheezes, rales, or rhonchi can be appreciated. CARDIOVASCULAR: S1, S2, regular rate and rhythm. No murmurs, clicks, or rubs can be appreciated. ABDOMEN: Soft. It is actually relatively flat. There is no guarding, no peritoneal signs. Minimal tenderness. Positive bowel sounds. EXTREMITIES: Surgical dressing in place, looks good ASSESSMENT AND PLAN: This is an elderly lady who had a possible reversibility region of the prosthetic left shoulder because of possible infection. Currently on IV vancomycin. Awaiting daptomycin approval for discharge. Doing okay initially was having wound VAC, which has been discontinued. She would require 6 weeks of IV vancomycin versus daptomycin. normalizer are already working on daptomycin. Orthopedics is the primary and we are only consulting. 1. Left shoulder revision because of possible infection . Management as per orthopedics. Pain control as per orthopedics. Activity as per orthopedics. 2. Infected wound. All the cultures have been sent including fungal and anaerobic cultures and have been negative so far. the patient on vancomycin, . de-escalate antibiotics as per ID for discharge. ID is already on board. Likely daptomycin versus vancomycin for 6 weeks on discharge She will require 6 weeks of IV antibiotics. Patient already has a PICC line in place. 3. COPD. We will keep the patient on Wednesday on nebs every 6 when necessary along with that. We'll resume her home meds. The patient does not look like in any exacerbation. Maintain saturation above 92 by supplemental oxygen. DVT prophylaxis with SCDs In control, activity as per orthopedics Disposition as per primary VS,Catye, I+O VS, Fishbone, I+O Laboratory Tests 04/29/19 06:43 Vital Signs Date Time Temp Pulse Resp B/P (MAP) Pulse Ox O2 Delivery O2 Flow Rate FiO2 04/29/19 06:00 98.5 77 18 131/57 (81) 92 Room Air 10/23/19 21:00 2.0 I&O- Last 24 Hours up to 6 AM 04/29/19 06:00 Intake Total 1200 ml Balance 1200 ml WAQAS STOCKTON MD Apr 29, 2019 10:56
[2019-04-29 14:00] VITALS: BP 147/72
[2019-04-29] MEDS: ACETAMINOPHEN TAB 650MG DOSE (2X325MG) PO PRN ×2 (15:04→19:21)
--- NOTE | 2019-04-29 17:49 | REP ---
PICC line insertion under ultrasound guidance. The procedure was performed by CHIVO Kinsey, under the direct supervision of Dr. Higuera. The risks and benefits of the procedure were explained to the patient and informed consent was obtained both verbally and written. Directly prior to the start of the procedure, a formal timeout was completed in the procedure room. The right basilic vein was localized using ultrasound guidance. The skin was prepped and draped in the sterile fashion. 1 ml 1% lidocaine was used as a local anesthetic. Using ultrasound guidance the right basilic vein was cannulated and a 0.018 guidewire was inserted and advanced to the SVC using fluoroscopic guidance. The needle was removed and a 4.5 [place] dilator and peel-away sheath was inserted over the guidewire. A 4.5 [place] single lumen catheter was cut to the length of 35 cm. The dilator was removed and the catheter was inserted over the guide wire with the tip ending in the SVC. The peel-away sheath was removed and the catheter was flushed with heparinized saline as per hospital protocol. The catheter was affixed to the skin and a sterile dressing was applied. The patient tolerated the procedure well and there were no immediate complications. 0.1 minutes of fluoroscopy time was utilized for this procedure. Some fluoroscopic images are performed with last image hold technology. These images require no additional radiation. Reviewed by CHIVO Scott 04/27/2019 04:34 P Electronically Signed by Jose Higuera MD 04/29/2019 05:40 P
[2019-04-29] MEDS: QUEtiapine FUMARATE 100 MG TAB PO SCH (20:59)
[2019-04-29 22:00] VITALS: BP 136/68
[2019-04-29] MEDS: SODIUM CHLORIDE 0.9% INJ 10 ML SYR IV PRN (22:12)
[2019-04-30] MEDS: oxyCODONE 5MG TAB PO PRN ×5 (03:13→21:45)
[2019-04-30] MEDS: SODIUM CHLORIDE 0.9% INJ 10 ML SYR IV SCH ×2 (05:15→17:02)
[2019-04-30] MEDS: ACETAMINOPHEN TAB 650MG DOSE (2X325MG) PO PRN ×2 (05:15→20:25)
[2019-04-30] MEDS: LEVOTHYROXINE 75MCG TABLET (0.075MG) PO SCH (05:15)
[2019-04-30 06:00] VITALS: BP 109/56
[2019-04-30 06:28] LABS: HEMOGLOBIN 8.3 g/dl (12.0-15.5); MEAN CORPUSCULAR HEMOGLOBIN 28.4 pg (27.0-33.0); MEAN CORPUSCULAR HGB CONC 30.7 g/dl (32.0-36.5); MEAN CORPUSCULAR VOLUME 92.5 fl (80.0-96.0); PLATELET COUNT, AUTOMATED 323 10^3/uL (150-450); RED BLOOD COUNT 2.92 10^6/uL (4.00-5.40)
[2019-04-30 06:53] LABS: BLOOD UREA NITROGEN 15 MG/DL (7-18); CALCIUM LEVEL 8.4 MG/DL (8.5-10.1); CARBON DIOXIDE LEVEL 27 MEQ/L (21-32); CHLORIDE LEVEL 106 MEQ/L (98-107); CREATININE FOR GFR 0.88 MG/DL (0.55-1.30); GLOMERULAR FILTRATION RATE > 60.0 (>51); GLUCOSE, FASTING 92 MG/DL (70-100); POTASSIUM SERUM 4.1 MEQ/L (3.5-5.1); SODIUM LEVEL 141 MEQ/L (136-145)
[2019-04-30 08:03] LABS: VANCOMYCIN RANDOM 19.7 UG/ML
--- NOTE | 2019-04-30 08:17 | PHACANCOPD ---
PHARMACY VANCOMYCIN DOSING Pt Demographics Demographics Patient Age:58 , Weight:64.319 , Gender: female Adjusted Body Weight Events Past 24 Hours Events Past 24 Hours: NO: Dialysis, Diuretic Therapy, Change in CrCl, Fever, Elevation in WBC, Pending Diagnostics, Pending Procedures, Other Vancomycin Vancomycin indication: INFECTED LEFT SHOULDER s/p ORTHO SURHERY Vancomycin Target Ranges: 10-20 mcg/ml Vancomycin Load Y/N: No Vancomycin Dose Date: 04/27/19. Change Vancomycin Dose to : [1GM IV Q12H starting @20:00] Intermittent Dosing?: No Labs Labs Item Value Date Time White Blood Count 4.0 10^3/uL 04/30/19 0549 White Blood Count 4.3 10^3/uL 04/29/19 0643 White Blood Count 4.7 10^3/uL 04/28/19 0554 Creatinine 0.88 MG/DL 04/30/19 0549 Creatinine 0.88 MG/DL 04/29/19 0643 Creatinine 0.84 MG/DL 04/28/19 0554 Random Vancomycin Level 19.7 UG/ML 04/30/19 0549 Vancomycin Level Trough 15.9 UG/ML 04/28/19 1851 Methicillin-Resist S.aureus DNA PCR NOT DETECTED 04/27/19 2101 Micro Microbiology 04/25/19 Blood Culture - Preliminary, Resulted No Growth after 72 hours. All specime... 04/25/19 Fungal Smear, Received Pending 04/25/19 Fungal Culture, Received Pending 04/25/19 Fungal Smear, Received Pending 04/25/19 Fungal Culture, Received Pending 04/25/19 Fungal Smear, Received Pending 04/25/19 Fungal Culture, Received Pending 04/25/19 Anaerobic Culture - Final, Complete 04/25/19 Gram Stain - Final, Complete 04/25/19 Wound Culture - Final, Complete 04/25/19 Anaerobic Culture - Final, Complete 04/25/19 Gram Stain - Final, Complete 04/25/19 Wound Culture - Final, Complete 04/25/19 Anaerobic Culture - Final, Complete 04/25/19 Gram Stain - Final, Complete 04/25/19 Wound Culture - Final, Complete Creatinine Clearance Date:04/27/19. Creatinine Clearance: [ >50 mL/min]. Assessment and Plan Maintaining Current Dose?: Yes Reason for dose change: No Dose Change Pharmacist Note Pharmacist Note 04/30/19: Random this AM resulted at 19.7mcg/ml. This is 3 hrs before next dose. True trough extrapolated to 16.9mcg/ml. This is within our target range of 15- 20. We will continue the current dose. To date no growth seen from cultures. Plan is to de-escalate tomorrow. We will continue to monitor and adjust dose as needed. Date: 04/27/19. PharmD note: LOW VANCO TROUGH REALIZED, THEREFORE, WE SHALL INCREASE HER VANCO TO 1GM IV Q12H STARTING AT 20:00 THIS EVENING. WE WILL REPEAT ANOTHER VANCO TROUGH WHEN SHE IS AT [facility] Apr 30, 2019 08:17
[2019-04-30] MEDS: ADVAIR HFA 115/21MCG INHALER INH SCH ×2 (08:27→19:54)
[2019-04-30] MEDS: buPROPion **XL** TABLET 150MG (WELLBUTRIN XL) PO SCH (08:27)
[2019-04-30] MEDS: ALPRAZolam 0.5 MG TAB PO SCH ×2 (08:27→20:24)
[2019-04-30] MEDS: ATORVASTATIN 20 MG TAB PO SCH (08:28)
[2019-04-30] MEDS: NICOTINE 21MG/24HR 1 EA TRANSDERMAL TD SCH (08:30)
[2019-04-30] MEDS: MIRALAX *UNIT DOSE* 17GM PACKET PO SCH (09:00)
[2019-04-30] MEDS: MOM 30ML SUSPENSION UDC PO SCH (09:00)
[2019-04-30] MEDS: VANCOMYCIN HCL 1,000 MG, VIAL MATE ADAPTER 1 EACH in D5W 250 ML IV SCH ×2 (09:26→20:25)
[2019-04-30 14:00] VITALS: BP 115/54
--- NOTE | 2019-04-30 16:17 | IPNPDOC ---
Text Note Date of Service The patient was seen on 04/30/19. NOTE SUBJECTIVE: The patient is doing well. She is hopeful of going home tomorrow. The patient is status post removal of left shoulder hardware due to infection. OBJECTIVE: Please see vital signs below Physical exam: HENT: Neck is supple with no adenopathy or thyromegaly, she does not have scleral injection Cardiovascular: Regular rate and rhythm with a normal S1 and S2 Respiratory: Patient has good air movement, but coarse smoker's cough Abdomen: Soft, nontender, nondistended, positive bowel tones. Extremities: No peripheral edema, pedal pulses are palpable, patient has PICC line to right upper extremity, surgical site to left shoulder is clean and dressed. ASSESSMENT/PLAN: Joint infection. Patient is status post reverse shoulder arthroplasty with removal of prosthesis due to infection. Organism isolated appears to be coag-negative staph and Corynebacterium. Repeat cultures have been negative to date. Patient is expectant of 6 weeks of IV antibiotics. Arrangements for home administration are in progress. VS,Elvira, I+O VS, Elvira, I+O Laboratory Tests 04/30/19 05:49 Vital Signs Date Time Temp Pulse Resp B/P (MAP) Pulse Ox O2 Delivery O2 Flow Rate FiO2 04/30/19 14:21 16 04/30/19 14:00 97.4 77 115/54 (74) 94 Room Air 04/26/19 21:00 2.0 I&O- Last 24 Hours up to 6 AM 04/30/19 06:00 Intake Total 1870 ml Output Total 0 ml Balance 1870 ml EDWIN SALMERON MD Apr 30, 2019 16:17
[2019-04-30] MEDS: QUEtiapine FUMARATE 100 MG TAB PO SCH (20:24)
[2019-04-30] MEDS: SODIUM CHLORIDE 0.9% INJ 10 ML SYR IV PRN ×2 (20:25→21:45)
[2019-04-30 22:00] VITALS: BP 158/73
[2019-05-01] MEDS: LEVOTHYROXINE 75MCG TABLET (0.075MG) PO SCH (05:03)
[2019-05-01] MEDS: SODIUM CHLORIDE 0.9% INJ 10 ML SYR IV SCH ×2 (05:04→16:18)
[2019-05-01] MEDS: oxyCODONE 5MG TAB PO PRN ×4 (05:04→20:05)
[2019-05-01 06:00] VITALS: BP 131/55
[2019-05-01 06:27] LABS: HEMOGLOBIN 8.6 g/dl (12.0-15.5); MEAN CORPUSCULAR HEMOGLOBIN 28.3 pg (27.0-33.0); MEAN CORPUSCULAR HGB CONC 30.7 g/dl (32.0-36.5); MEAN CORPUSCULAR VOLUME 92.1 fl (80.0-96.0); PLATELET COUNT, AUTOMATED 330 10^3/uL (150-450); RED BLOOD COUNT 3.04 10^6/uL (4.00-5.40); WHITE BLOOD COUNT 4.4 10^3/uL (4.0-10.0)
[2019-05-01 06:50] LABS: BLOOD UREA NITROGEN 20 MG/DL (7-18); CALCIUM LEVEL 8.4 MG/DL (8.5-10.1); CARBON DIOXIDE LEVEL 26 MEQ/L (21-32); CHLORIDE LEVEL 109 MEQ/L (98-107); CREATININE FOR GFR 0.97 MG/DL (0.55-1.30); GLOMERULAR FILTRATION RATE > 60.0 (>51); GLUCOSE, FASTING 94 MG/DL (70-100); SODIUM LEVEL 139 MEQ/L (136-145)
[2019-05-01] MEDS: ADVAIR HFA 115/21MCG INHALER INH SCH ×2 (07:23→19:29)
[2019-05-01] MEDS: NICOTINE 21MG/24HR 1 EA TRANSDERMAL TD SCH (08:16)
[2019-05-01] MEDS: buPROPion **XL** TABLET 150MG (WELLBUTRIN XL) PO SCH (08:16)
[2019-05-01] MEDS: ATORVASTATIN 20 MG TAB PO SCH (08:16)
[2019-05-01] MEDS: ACETAMINOPHEN TAB 650MG DOSE (2X325MG) PO PRN ×2 (08:17→16:17)
[2019-05-01] MEDS: ALPRAZolam 0.5 MG TAB PO SCH ×2 (08:18→20:04)
[2019-05-01] MEDS: MOM 30ML SUSPENSION UDC PO SCH (08:18)
[2019-05-01] MEDS: VANCOMYCIN HCL 1,000 MG, VIAL MATE ADAPTER 1 EACH in D5W 250 ML IV SCH ×2 (08:18→20:05)
[2019-05-01] MEDS: MIRALAX *UNIT DOSE* 17GM PACKET PO SCH (08:19)
[2019-05-01 14:00] VITALS: BP 138/57
[2019-05-01] MEDS: QUEtiapine FUMARATE 100 MG TAB PO SCH (20:04)
[2019-05-01 20:18] VITALS: BP 131/69
--- NOTE | 2019-05-01 20:57 | IPN ---
DATE: 05/01/2019 Kassidy is doing well. She is anxious to go home tomorrow. She could not afford the co-pay for home intravenous (IV) antibiotic but will be going to [facility] once a day for outpatient IV antibiotics. She is status post removal of old hardware of the left shoulder and placement of new hardware. PHYSICAL EXAMINATION: Heart: Normal S1, S2. No murmurs. Lungs: Coarse expiratory rhonchi. Abdomen: Soft, nontender. No hepatosplenomegaly. Extremities: No edema. Left shoulder with Optifoam dressing, no redness. Right arm peripherally inserted central catheter (PICC) line. LABORATORY: White count is 4.4, hemoglobin 8.6, hematocrit 28, platelets 330. Sodium 139, potassium 4.0, chloride 109, bicarbonate 26, BUN 20, creatinine 0.97, glucose 94, calcium 8.4, CRP 2.8. ESR 67. Random vancomycin level was 19.7 and all intraoperative cultures were negative. IMPRESSION: Status post reverse shoulder arthroplasty of the left arm with postoperative wound infection and sinus tract. Culture was only positive for some normal brenda. Corynebacterium and staph coag negative in [place] but nothing at [facility]. The patient has been on outpatient oral antibiotics. Will treat for Corynebacterium and staph coag negative with daptomycin 500 mg IV daily through the outpatient infusion unit if they have it available. PLAN: Discharge the patient home tomorrow with IV daptomycin 500 mg every 24 hours. Monitor CBC, CRP, basic profile and CPK weekly. Will obtain baseline CPK in the morning. Follow up in my office in 2-3 weeks.
[2019-05-01] MEDS: SODIUM CHLORIDE 0.9% INJ 10 ML SYR IV PRN (21:27)
--- NOTE | 2019-05-01 21:27 | IPNPDOC ---
Text Note Date of Service The patient was seen on 05/01/19. NOTE SUBJECTIVE: The patient is doing well. She is again hopeful of going home tomorrow. The patient is status post removal of left shoulder hardware due to infection. OBJECTIVE: Please see vital signs below Physical exam: HENT: Neck is supple with no adenopathy or thyromegaly, she does not have scleral injection Cardiovascular: Regular rate and rhythm with a normal S1 and S2 Respiratory: Patient has good air movement, but coarse smoker's cough Abdomen: Soft, nontender, nondistended, positive bowel tones. Extremities: No peripheral edema, pedal pulses are palpable, patient has PICC line to right upper extremity, surgical site to left shoulder is clean and dressed. ASSESSMENT/PLAN: Joint infection. Patient is status post reverse shoulder arthroplasty with removal of prosthesis due to infection. Organism isolated appears to be coag-negative staph and Corynebacterium. Repeat cultures have been negative to date. Arrangements for outpatient IV antibiotic infusion have been challenging. Plans are for her to go to an outpatient infusion center to receive daptomycin daily for 2 weeks. VS,Elvira, I+O VS, aCtye, I+O Laboratory Tests 05/01/19 05:42 Vital Signs Date Time Temp Pulse Resp B/P (MAP) Pulse Ox O2 Delivery O2 Flow Rate FiO2 05/01/19 20:05 16 Room Air 05/01/19 14:00 96.7 84 138/57 (84) 96 04/26/19 21:00 2.0 I&O- Last 24 Hours up to 6 AM 05/01/19 06:00 Intake Total 2280 ml Balance 2280 ml EDWIN SALMERON MD May 01, 2019 21:27
[2019-05-02 05:02] VITALS: BP 128/59
[2019-05-02] MEDS: LEVOTHYROXINE 75MCG TABLET (0.075MG) PO SCH (05:02)
[2019-05-02] MEDS: oxyCODONE 5MG TAB PO PRN ×2 (05:02→09:28)
[2019-05-02] MEDS: SODIUM CHLORIDE 0.9% INJ 10 ML SYR IV SCH (05:02)
[2019-05-02 06:32] LABS: HEMATOCRIT 27.7 % (36.0-47.0); HEMOGLOBIN 8.7 g/dl (12.0-15.5); MEAN CORPUSCULAR HEMOGLOBIN 29.2 pg (27.0-33.0); MEAN CORPUSCULAR HGB CONC 31.4 g/dl (32.0-36.5); PLATELET COUNT, AUTOMATED 349 10^3/uL (150-450); RED BLOOD COUNT 2.98 10^6/uL (4.00-5.40); WHITE BLOOD COUNT 5.3 10^3/uL (4.0-10.0)
[2019-05-02 06:52] LABS: ERYTHROCYTE SEDIMENTATION RATE 63 mm/hr (0-30)
[2019-05-02 06:56] LABS: BLOOD UREA NITROGEN 20 MG/DL (7-18); C REACTIVE PROTEIN QUANTITATIV 1.58 MG/DL (0.00-0.30); CALCIUM LEVEL 8.2 MG/DL (8.5-10.1); CARBON DIOXIDE LEVEL 26 MEQ/L (21-32); CHLORIDE LEVEL 106 MEQ/L (98-107); CPK CREATINE PHOSPHOKINASE 81 U/L (26-192); CREATININE FOR GFR 0.98 MG/DL (0.55-1.30); GLOMERULAR FILTRATION RATE > 60.0 (>51); GLUCOSE, FASTING 91 MG/DL (70-100); POTASSIUM SERUM 4.3 MEQ/L (3.5-5.1); SODIUM LEVEL 140 MEQ/L (136-145); VANCOMYCIN RANDOM 19.3 UG/ML
[2019-05-02] MEDS: ADVAIR HFA 115/21MCG INHALER INH SCH (07:24)
--- NOTE | 2019-05-02 07:55 | DS.PDOC ---
Discharge Summary General Date of Admission Apr 26, 2019 at 08:09 Date of Discharge May 02, 2019 Specialist/Consultants Involve: LYN TREADWELL MD Specialist/Consultants Involve Dr. Inder Torres, infectious disease Discharge Summary PROCEDURES PERFORMED DURING STAY: Reverse total shoulder arthroplasty. ADMITTING DIAGNOSES: 1. Left shoulder joint prosthesis infection. DISCHARGE DIAGNOSES: 1. Left shoulder joint prosthesis infection--MSSA, COPD with no acute exacerbation during this hospital stay, tobacco dependency. COMPLICATIONS/CHIEF COMPLAINT: Infected Left Total Reverse Shoulder Arthroplasty. HISTORY OF PRESENT ILLNESS/HOSPITAL COURSE: This is a 58-year-old female who had sustained a left shoulder fracture after falling off of her horse several weeks ago. She had undergone surgical repair of fracture and rotator cuff tear. She developed painful swelling and drainage. She was evaluated at an out of state facility and this turned out to be a focus of infection secondary to methicillin sensitive staph aureus. The patient returned to her orthopedist here and underwent reverse total shoulder arthroplasty with removal of hardware and placement of antibiotic beads. Again MSSA was reported isolated at outlying facility. She was treated with a course of vancomycin while here in the hospital. She was seen by infectious disease services and an extended course of IV antibiotics was recommended in the form of daptomycin for at least 2 weeks. Patient has had a PICC line placed so that she can undergo outpatient infusions. The patient has tobacco dependency. She did make use of a nicotine patch while here in the hospital. Benefits of smoking cessation were discussed at length. Patient will try to maintain smoking cessation after discharge and will accept a prescription for nicotine patch.. DISCHARGE MEDICATIONS: Please see below. ALLERGIES: Please see below. PHYSICAL EXAMINATION ON DISCHARGE: VITAL SIGNS: Please see below. HENT: Neck is supple with no adenopathy or thyromegaly, she does not have scl eral injection Cardiovascular: Regular rate and rhythm with a normal S1 and S2 Respiratory: Patient has good air movement, but coarse smoker's cough and husky voice Abdomen: Soft, nontender, nondistended, positive bowel tones. Extremities: No peripheral edema, pedal pulses are palpable, patient has PICC line to right upper extremity, surgical site to left shoulder is clean and dressed. LABORATORY DATA: Please see below. IMAGING: PROGNOSIS: ACTIVITY: As tolerated. DIET: Regular diet as tolerated DISCHARGE PLAN: Patient will be discharged to home with arrangements for outpatient IV antibiotic infusion at [facility].. She'll receive daptomycin 500 mg IV daily for 2 weeks. She will then follow-up with infectious disease service, Dr. Torres for transition to oral antibiotics. She will also follow-up with Dr. Treadwell in 2 weeks. Patient will hopefully remain committed to smoking cessation. DISPOSITION: . DISCHARGE INSTRUCTIONS: 1. . ITEMS TO FOLLOWUP ON ON OUTPATIENT: 1. . DISCHARGE CONDITION: Stable. TIME SPENT ON DISCHARGE: Greater than 45 minutes. Vital Signs/I&Os Vital Signs Date Time Temp Pulse Resp B/P (MAP) Pulse Ox O2 Delivery O2 Flow Rate FiO2 05/02/19 05:32 16 05/02/19 05:02 99.2 80 128/59 (82) 93 Room Air 04/26/19 21:00 2.0 I&O- Last 24 Hours up to 6 AM 05/02/19 06:00 Intake Total 1730 ml Output Total 0 ml Balance 1730 ml Laboratory Data Labs 24H Laboratory Tests 2 05/02/19 05:58: Nucleated Red Blood Cells % (auto) 0.0, Erythrocyte Sedimentation Rate 63H, Ani on Gap 8, Glomerular Filtration Rate > 60.0, Calcium Level 8.2L, Total Creatine Kinase 81, C-Reactive Protein, Quantitative 1.58H, Random Vancomycin Level 19.3 CBC/BMP Laboratory Tests 05/02/19 05:58 Microbiology Microbiology 04/25/19 Blood Culture - Final, Complete NO GROWTH AFTER 5 DAYS 04/25/19 Fungal Smear, Received Pending 04/25/19 Fungal Culture, Received Pending 04/25/19 Fungal Smear, Received Pending 04/25/19 Fungal Culture, Received Pending 04/25/19 Fungal Smear, Received Pending 04/25/19 Fungal Culture, Received Pending 04/25/19 Anaerobic Culture - Final, Complete 04/25/19 Gram Stain - Final, Complete 04/25/19 Wound Culture - Final, Complete 04/25/19 Anaerobic Culture - Final, Complete 04/25/19 Gram Stain - Final, Complete 04/25/19 Wound Culture - Final, Complete 04/25/19 Anaerobic Culture - Final, Complete 04/25/19 Gram Stain - Final, Complete 04/25/19 Wound Culture - Final, Complete Discharge Medications Scheduled Alprazolam (Alprazolam) 1 Mg Tab, 1 MG PO BID, (Reported) Atorvastatin Calcium (Atorvastatin Calcium) 40 Mg Tablet, 40 MG PO DAILY, (Reported) Bupropion HCl (Bupropion Xl) 300 Mg Tab, 300 MG PO DAILY, (Reported) Calcium Carbonate/Vitamin D3 (Calcium 1,000 + D3 Caplet) 1 Each Tablet, 1 TAB PO DAILY, (Reported) Daptomycin (Daptomycin) 500 Mg Vial, 500 MG IV DAILY Ergocalciferol (Vitamin D2) (Vitamin D2) 50,000 Unit Capsule, 50,000 UNIT PO QWEEK, (Reported) Estradiol (Estradiol) 1 Mg Tab, 2 MG PO DAILY, (Reported) Fluticasone/Vilanterol (Breo Ellipta 100-25 Mcg INH) 1 Each Blst.w.dev, 1 PUFF INH DAILY, (Reported) Lamotrigine (Lamictal) 150 Mg Tablet, 150 MG PO DAILY, (Reported) Levothyroxine Sodium (Levothyroxine Sodium) 75 Mcg Tablet, 75 MCG PO DAILY, (Reported) Nicotine (Nicotine Patch) 21 Mg Patch.td24, 1 PATCH TD DAILY [place]-3/Dha/Epa/Fish Oil ([place] 3 500 Softgel) 1 Each Capsule, 2 CAP PO DAILY, (Reported) Quetiapine Fumarate (Quetiapine Fumarate) 100 Mg Tablet, 100 MG PO DAILY, (Reported) Salmeterol/Fluticasone (Advair 250-50 Diskus) 14 Puff/Inhaler Aerp, 1 PUFF INH BID, (Reported) Scheduled PRN Levalbuterol Hydrochloride (Xopenex Hfa) 45 Mcg/Act Aer, 2 PUFF INH Q4H PRN for SOB/WHEEZING, (Reported) Oxycodone HCl (Oxycodone HCl) 5 Mg Tablet, 1-2 TABS PO Q4H PRN for PAIN Miscellaneous Medications Cannabidiol (Cbd Oil) Btl, (Reported) Allergies Coded Allergies: Penicillins (Verified Allergy, Severe, DIFFICULTY BREATHING, HIVES, 04/20/19) tramadol (Verified Adverse Reaction, Intermediate, HALLUCINATIONS,, 04/20/19) EDWIN SALMERON MD May 02, 2019 07:55
[2019-05-02] MEDS: ALPRAZolam 0.5 MG TAB PO SCH (08:03)
[2019-05-02] MEDS: NICOTINE 21MG/24HR 1 EA TRANSDERMAL TD SCH (08:03)
[2019-05-02] MEDS: VANCOMYCIN HCL 1,000 MG, VIAL MATE ADAPTER 1 EACH in D5W 250 ML IV SCH (08:03)
[2019-05-02] MEDS: MIRALAX *UNIT DOSE* 17GM PACKET PO SCH (08:04)
[2019-05-02] MEDS ORDERED: NICO21PAT TD (08:04)
[2019-05-02] MEDS: ACETAMINOPHEN TAB 650MG DOSE (2X325MG) PO PRN (08:04)
[2019-05-02] MEDS ORDERED: DAPT500I IV (08:04)
[2019-05-02] MEDS: MOM 30ML SUSPENSION UDC PO SCH (08:04)
[2019-05-02] MEDS: buPROPion **XL** TABLET 150MG (WELLBUTRIN XL) PO SCH (08:04)
[2019-05-02] MEDS: ATORVASTATIN 20 MG TAB PO SCH (08:04)
--- NOTE | 2019-05-02 08:20 | DSES ---
DATE OF ADMISSION: 04/25/2019 DATE OF DISCHARGE: 05/02/2019 ADMISSION DIAGNOSIS: Left infected reverse arthroplasty. OTHER DIAGNOSES: Reactive airway disease. Anxiety. History of uterine cancer treated with chemotherapy. DISCHARGE DIAGNOSIS: Infected left reverse total shoulder arthroplasty status post irrigation and debridement, removal of the implants and placement of cement spacers with antibiotics. OPERATION PERFORMED: Irrigation and debridement of the left shoulder, removal of the reverse total arthroplasty hardware, and replacement with antibiotic cement spacers. HISTORY: This is a pleasant 58-year-old female patient who approximately 7 weeks ago sustained a comminuted proximal humeral fracture, underwent a reverse shoulder arthroplasty for her fracture and ultimately developed a postoperative wound infection. She was admitted for incision and drainage of the left shoulder, removal of the implants and placement of antibiotic cement spacers HOSPITAL COURSE: The patient was admitted on day of surgery and underwent removal of the reverse shoulder arthroplasty implants and irrigation and debridement of wound and placement of antibiotic cement spacers. She tolerated the procedure well and there was no complications. On the day of discharge her pain was controlled. Her symptoms had improved and she was being sent to subacute rehab at [facility] for further treatment,rehad and IV antibiotics to continue to treat her symptoms. She will use oral pain medications for pain control. She will resume her preoperative medications and diet. She will followup in our office in 7-10 days for surgical followup in our office as well as with Dr Torres. She will use daptomycin for 2 weeks IV as directed by Dr. Torres, then will switch to an oral antibiotic as directed by Dr. Torres. She will require weekly CRP and C-reactive proteins and be followed by Dr. Torres. She was given instructions to include but not limited to to wound monitoring and activity limitations. Please refer the medical record further detail. SEAND
== END 2019-05-02 13:55 | disposition home or self-care (01) | DRG 497 ==
LOC: M SDC 08:02 → M MS5PR 16:19 → M SDC 04-26 08:08 → EEVIPCON 04-26 08:09 → M MS5PR 04-26 08:09
PROVIDERS: ADMIT Orthopaedic Surgery Hand Surgery; ATTEND Internal Medicine
PROC: 0RPK0JZ Removal of Synthetic Substitute from Left Shoulder Joint, Open Approach (ICD-10-PCS; principal; 2019-04-26)
PROC: 0XB30ZZ Excision of Left Shoulder Region, Open Approach (ICD-10-PCS; 2019-04-26)
PROC: 0RHK08Z Insertion of Spacer into Left Shoulder Joint, Open Approach (ICD-10-PCS; 2019-04-26)
PROC: 02HV33Z Insertion of Infusion Device into Superior Vena Cava, Percutaneous Approach (ICD-10-PCS; 2019-04-27)
DX: T84.59XA Infection and inflammatory reaction due to other internal joint prosthesis, initial encounter (principal); J44.9 Chronic obstructive pulmonary disease, unspecified; B95.61 Methicillin susceptible Staphylococcus aureus infection as the cause of diseases classified elsewhere; F17.210 Nicotine dependence, cigarettes, uncomplicated; Z79.899 Other long term (current) drug therapy; Z88.0 Allergy status to penicillin; Z88.8 Allergy status to other drugs, medicaments and biological substances; Z85.42 Personal history of malignant neoplasm of other parts of uterus; F41.9 Anxiety disorder, unspecified; Y83.1 Surgical operation with implant of artificial internal device as the cause of abnormal reaction of the patient, or of later complication, without mention of misadventure at the time of the procedure